=== PATIENT | male | born 1960 | race Caucasian/White ===

== ENCOUNTER → 2017-06-03 15:00 | Outpatient (CLI) | payer OTHER, SELFPAY ==
--- NOTE | 2017-06-03 15:17 | EKG12_ITS ---
Test Reason : PRE OP Blood Pressure : / mmHG Vent. Rate : 072 BPM Atrial Rate : 072 BPM P-R Int : 180 ms QRS Dur : 096 ms QT Int : 392 ms P-R-T Axes : 067 026 055 degrees QTc Int : 429 ms Normal sinus rhythm Normal ECG Confirmed by BETI PETERSON, CLARICE ([id number]), news editor PRERNA ANDERSON ([id number] on 06/06/2017 1:07:35 PM Referred By: Du Lux Confirmed By:CLARICE BANG MD
--- NOTE | 2017-06-03 15:20 | RAD_ITS ---
STUDY: X-RAY CHEST REASON FOR EXAM: Male, 57 years old. Preop TECHNIQUE: PA and lateral views of the chest. COMPARISON: Prior study of 02/08/2014 FINDINGS: The lungs are clear and expanded. There is no demonstrated pleural abnormality. Normal size heart. Normal mediastinum and katie. Normal visualized pulmonary arteries. Normal visualized aortic arch and descending thoracic aorta. Normal visualized thoracic spine. Normal visualized ribs, clavicles, and shoulders. There is no demonstrated abnormality of the visualized soft tissue structures of the upper abdomen. RAD/Chest PA and Lateral IMPRESSION: Normal x-ray examination of the chest. Electronically Signed: Nico Caban MD at 23:55 EDT , Service support ,
[2017-06-03 15:59] LABS: Hematocrit 50.1 % (40-54); Hemoglobin 17.1 g/dl (13.0-16.5); Mean Corp Hgb Conc 34.1 g/gl (32-36); Mean Corpuscular Hgb 31.4 pg (27.0-32.0); Mean Corpuscular Volume 91.9 fL (80-94); Mean Platelet Vol. 9.7 fl (6.2-12.0); Platelet Count 261 K/mm3 (150-450); RBC Distribution Width CV 12.9 % (11.6-14.6); RBC Distribution Width SD 43.1 fl (35.1-43.9); Red Blood Count 5.45 M/mm3 (4.6-6.2); White Blood Count 11.1 K/mm3 (4.4-11.0)
[2017-06-03 16:00] LABS: Scan Indicated on CBC? Y/N NO
[2017-06-03 16:17] LABS: Anion Gap 5 (5-15); BUN 12 mg/dL (7-18); BUN/Creat Ratio 11.8 RATIO (10-20); Calcium,Total 8.6 mg/dL (8.5-10.1); Chloride 105 mmol/L (98-107); Creatinine, Serum 1.02 mg/dL (0.70-1.30); EST Glomerular Filtration Rate 80 mL/min (>60); Est Glom Filt Rate - Afr Amer 97 mL/min (>60); Glucose 100 mg/dL (74-106); Sodium Level 140 mmol/L (136-145)
== END ==
PROVIDERS: Family Provider Family Medicine; PCP Family Medicine; Visit Provider Orthopaedic Surgery
DX: Z01.812 Encounter for preprocedural laboratory examination (principal); Z01.810 Encounter for preprocedural cardiovascular examination
CPT/HCPCS: 36415; 71046; 80048; 85027; 93005